=== PATIENT | female | born 1955 | race Caucasian/White ===

== ENCOUNTER → 2017-01-05 | Day surgery (SDC) | payer BC ==
[~2017-01-05] MED LIST: Lactated Ringers 1,000 ML IV SCH; Propofol 200 MG/20 ML SDV IV ONE
[2017-01-05 12:50] VITALS: BP 122/69
--- NOTE | 2017-01-08 08:11 | OR ---
DATE OF OPERATION: 01/05/2017 PREOPERATIVE DIAGNOSIS: EPIGASTRIC PAIN. POSTOPERATIVE DIAGNOSIS: EPIGASTRIC PAIN. SURGEON: Michele Vincent MD PROCEDURE: ESOPHAGOGASTRODUODENOSCOPY WITH BIOPSIES X3, MOE. ANESTHESIA: [employer] due to GERD and anxiety. COMPLICATIONS: None. SPECIMEN: 1. Duodenal biopsy x1. 2. Antral biopsy x2. 3. MOE. FINDINGS: 1. Full-length EGD. 2. Duodenal atrophy possibly celiac disease. 3. Minimal antral gastritis. RECOMMENDATIONS: We will medically follow up after path reports back. INDICATIONS: The patient is having some persistent mid and left upper quadrant pain with a negative workup for gallbladder disease and a negative CT scan of the abdomen. We elected to proceed with EGD. DESCRIPTION OF PROCEDURE: The patient was prepped and draped, placed in the left lateral decubitus position. A lubricated Olympus gastroscope was inserted and easily intubated in the esophagus. Esophageal lining was completely benign. The Z-line was crisp and sharp at 39 cm. No significant reflux seen. No hernia, ulceration, Diaz's changes or otherwise. The scope was advanced into the stomach through the pylorus into the second portion of the duodenum. The 2nd portion of the duodenum was benign. The bulb had some what appeared to be maybe some villous atrophy, we did do a biopsy of that, but no ulceration or peptic ulcer disease was seen in the duodenal bulb. The scope was brought back into the stomach and retroflexed. The fundus and cardia appeared completely unremarkable. Upon straightening and thorough evaluation, the antrum did show a little bit of mild indolent may be chronic gastritis picture. We did do 2 biopsies and ultimately a MOE test. No other polyps, masses, ulcerations, or lesions were seen. Air was suctioned and the scope was removed without complication. LIT/SERG /[id number]
== END ==
LOC: CC.SDS 10:53
PROVIDERS: ATTEND Family Medicine
DX: K29.50 Unspecified chronic gastritis without bleeding (principal); K31.89 Other diseases of stomach and duodenum; Z88.1 Allergy status to other antibiotic agents; Z88.2 Allergy status to sulfonamides; Z79.899 Other long term (current) drug therapy
CPT/HCPCS: 43239; 87081; J2704; J7120

== ENCOUNTER 2024-08-29 11:09 | Day surgery (SDC) | payer MEDICARE, BC ==
[2024-08-29] MEDS: Lactated Ringers 1,000 ML IV SCH (11:35)
[2024-08-29 13:03] VITALS: BP 108/58; PULSE 81
== END 2024-08-29 13:09 | disposition home or self-care (01) ==
LOC: CC.SDS 11:09
PROVIDERS: ATTEND Family Medicine
DX: Z12.11 Encounter for screening for malignant neoplasm of colon (principal); I10 Essential (primary) hypertension; E78.00 Pure hypercholesterolemia, unspecified; E03.9 Hypothyroidism, unspecified; Z79.890 Hormone replacement therapy; Z79.899 Other long term (current) drug therapy; Z88.2 Allergy status to sulfonamides
CPT/HCPCS: J7120

== ENCOUNTER 2025-02-05 08:36 | Day surgery (SDC) | payer MEDICARE, BC ==
[2025-02-05] MEDS: Lactated Ringers 1,000 ML IV SCH (08:47)
[2025-02-05] MEDS ORDERED: Ondansetron 4 MG/2 ML SDV ONE (10:12)
[2025-02-05] MEDS ORDERED: Ketamine 200 MG/20 ML MDV ONE (10:12)
[2025-02-05] MEDS ORDERED: Phenylephrine 1% 10 MG/ML SDV ONE (10:12)
[2025-02-05] MEDS ORDERED: fentaNYL 50 MCG/ML SDV ONE ×2 (10:12)
[2025-02-05] MEDS ORDERED: Propofol 200 MG/20 ML SDV ONE ×3 (10:12)
[2025-02-05] MEDS ORDERED: Midazolam 1 MG/ML 2 ML SDV ONE (10:12)
[2025-02-05] MEDS ORDERED: ePHEDrine 50 MG/ML SDV ONE (10:12)
[2025-02-05 12:47] VITALS: BP 115/59; PULSE 93
== END 2025-02-05 13:25 | disposition home or self-care (01) ==
LOC: CC.SDS 08:36
PROVIDERS: ATTEND Surgery
DX: L72.11 Pilar cyst (principal); E78.00 Pure hypercholesterolemia, unspecified; E03.9 Hypothyroidism, unspecified; Z88.2 Allergy status to sulfonamides; Z79.899 Other long term (current) drug therapy
CPT/HCPCS: 00300; 88304; J0665; J2250; J2371; J2405; J2704; J3010; J3490; J7120